=== PATIENT | male | born 1970 | race Caucasian/White ===

== ENCOUNTER 2018-11-14 17:23 | Emergency (ER) | payer MEDICAID ==
[~2018-11-14] VITALS: Ht 167.6 cm; Wt 66.2 kg
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
[2018-11-14 18:12] LABS: BASOPHILS # (AUTO) 0.1 /CMM (0.0-0.2); BASOPHILS % (AUTO) 0.4 % (0.0-2.0); EOSINOPHILS % (AUTO) 0.1 % (0.0-6.0); HEMATOCRIT 43 % (39-51); HEMOGLOBIN 14.7 g/dL (13.5-17.5); LYMPHOCYTES # (AUTO) 0.4 /CMM (0.8-4.8); LYMPHOCYTES % (AUTO) 2.9 % (20.0-44.0); MEAN CORPUSCULAR HGB CONC 35 g/dl (31.0-36.0); MEAN CORPUSCULAR VOLUME 88 fL (80-96); MONOCYTES # (AUTO) 0.4 /CMM (0.1-1.30); NEUTROPHILS # (AUTO) 13.4 /CMM (1.8-8.9); NEUTROPHILS % (AUTO) 93.6 % (43.0-81.0); PLATELET COUNT (AUTO) 280 /CMM (150-450); RED BLOOD CELL COUNT(AUTO) 4.87 MIL/uL (4.5-6.0); WHITE BLOOD COUNT (AUTO) 14.3 K/uL (4.3-11.0)
[2018-11-14] MEDS ORDERED: ACETAMINOPHEN ES 500 MG TABLET ONE ×2 (18:12→18:21)
[2018-11-14] MEDS ORDERED: ONDANSETRON HCL/PF 4 MG/2 ML VIAL ONE (18:12)
[2018-11-14 18:24] LABS: CALCIUM, SERUM 9.7 mg/dL (8.5-10.1)
[2018-11-14 18:30] LABS: ALBUMIN 4.5 g/dL (3.4-5.0); BILIRUBIN,DIRECT 0.2 mg/dL (0.0-0.2); BILIRUBIN,TOTAL 1.3 mg/dL (0.2-1.0); TOTAL PROTEIN, SERUM 8.3 g/dL (6.4-8.2)
[2018-11-14] MEDS ORDERED: ACETAMINOPHEN ES 500 MG TABLET PO ONE (18:30)
[2018-11-14] MEDS ORDERED: ONDANSETRON HCL/PF 4 MG/2 ML VIAL IVP ONE (18:30)
[2018-11-14] MEDS ORDERED: IV NS 0.9% 1,000 ML BAG IV ONE (18:30)
[2018-11-14 19:13] VITALS: BP 131/70
--- NOTE | 2018-11-14 19:13 | NUR ---
Patient discharged to home in stable condition. Written and verbal after care instructions given. Patient verbalizes understanding of instruction. IV removed. Catheter intact and site benign. Pressure and 4x4 applied to site. No bleeding noted.
== END 2018-11-14 19:14 | disposition home or self-care (01) ==
LOC: ER 17:23
DX: A08.4 Viral intestinal infection, unspecified (principal); R11.2 Nausea with vomiting, unspecified; E78.00 Pure hypercholesterolemia, unspecified; Z90.89 Acquired absence of other organs; Z88.2 Allergy status to sulfonamides
CPT/HCPCS: 36415; 80048; 80076; 83690; 85025; 96361; 96374; 99283; J2405; J7030

== ENCOUNTER 2022-08-18 12:00 | Emergency (ER) | payer MEDICAID ==
[~2022-08-18] VITALS: Ht 170.2 cm; Wt 64.4 kg
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
[2022-08-18] MEDS ORDERED: CYCL5TAB PO (12:49)
[2022-08-18] MEDS ORDERED: PRED20TA PO (12:49)
[2022-08-18] MEDS ORDERED: HYDR-4209 PO (12:49)
[2022-08-18] MEDS ORDERED: IBUP-1955 PO (12:49)
[2022-08-18] MEDS ORDERED: KETOROLAC TROMETHAMINE 15 MG/ML VIAL ONE (12:52)
[2022-08-18] MEDS ORDERED: CYCLOBENZAPRINE 10 MG TABLET ONE (12:53)
[2022-08-18] MEDS ORDERED: HYDROCODONE/APAP 5/325MG TABLET ONE (12:53)
[2022-08-18] MEDS: KETOROLAC TROMETHAMINE INJ 30 MG/ML VIAL IM ONE (13:06)
[2022-08-18] MEDS: CYCLOBENZAPRINE 10 MG TABLET PO ONE (13:07)
[2022-08-18] MEDS: HYDROCODONE/APAP 5/325MG TABLET PO ONE (13:09)
[2022-08-18 13:20] VITALS: BP 150/90
== END 2022-08-18 13:22 | disposition home or self-care (01) ==
LOC: ER 12:12
DX: S39.012A Strain of muscle, fascia and tendon of lower back, initial encounter (principal); M54.42 Lumbago with sciatica, left side; I10 Essential (primary) hypertension; E78.00 Pure hypercholesterolemia, unspecified; Z79.899 Other long term (current) drug therapy; Z88.2 Allergy status to sulfonamides; W50.1XXA Accidental kick by another person, initial encounter; Y93.89 Activity, other specified; Y92.89 Other specified places as the place of occurrence of the external cause; Y99.8 Other external cause status
CPT/HCPCS: 99283; 96372; J1885

== ENCOUNTER 2024-09-10 11:40 | Emergency (ER) | payer MEDICAID ==
[~2024-09-10] VITALS: Ht 170.2 cm; Wt 63.5 kg
[~2024-09-10 11:40] MED LIST: CYCL5TAB PO; HYDR-4209 PO; IBUP-1955 PO; PRED20TA PO
[2024-09-10 12:02] VITALS: BP 146/92; TEMP 97.9
[2024-09-10] MEDS ORDERED: CETI-90 PO (12:28)
[2024-09-10] MEDS ORDERED: PRED20TA PO (12:28)
[2024-09-10 14:14] VITALS: O2SAT 99
== END 2024-09-10 14:15 | disposition home or self-care (01) ==
LOC: ER 11:44
DX: L23.3 Allergic contact dermatitis due to drugs in contact with skin (principal); I10 Essential (primary) hypertension; E78.00 Pure hypercholesterolemia, unspecified; Z79.52 Long term (current) use of systemic steroids; Z88.2 Allergy status to sulfonamides; Z79.899 Other long term (current) drug therapy